=== PATIENT | female | born 1930 | race Caucasian/White ===

== ENCOUNTER 2017-11-06 15:48 | Emergency (ER) | payer MEDICARE, OTHER ==
[~2017-11-06] VITALS: Ht 170.2 cm; Wt 82.0 kg
[~2017-11-06 15:48] MED LIST: CEPH500C3 PO; LEVO100T60 PO; LORTA5 PO; TOPR25TA2 PO; ZOFR4TAB3 SL
[2017-11-06 15:53] VITALS: BP 158/78; PULSE 86; RESP 16; TEMP 98.3; O2SAT 98
[2017-11-06] MEDS ORDERED: LIDOCAINE 1%/EPINEPHrine 1:100,000 SOLN 20 ML VIAL INFIL ONE (16:00)
[2017-11-06] MEDS ORDERED: MULT400T PO (16:06)
[2017-11-06] MEDS ORDERED: LEVO100T63 PO (16:06)
[2017-11-06] MEDS ORDERED: HYDR25TA5 PO (16:06)
--- NOTE | 2017-11-06 16:07 | PD ---
HPI Chief Complaint: Laceration/Skin Injury Time Seen by Provider: 15:59 Travel History International Travel<30 days: No Contact w/Intl Traveler<30days: No Traveled to known affect area: No History of Present Illness HPI 87-year-old female that presents to the ED for evaluation of laceration to her left leg. Per patient is happened about an hour before coming. Per patient she was walking and when sign made of metal fell and landed on her leg cutting her leg. She states up-to-date with her tetanus. She states that her pain is 4 out of 10. Denies any other medical issues. No blood thinner use. No head injury or loss of consciousness. Patient does have a significant laceration to the left lower leg. No numbness, tilling, weakness. Has not seen anybody for this. No other medical issues. PFSH Past Medical History Arthritis: No Asthma: No Heart Rhythm Problems: Yes (tachycardia) Cancer: Yes (SKIN) Cardiovascular Problems: Yes ("leaky valve" ) High Cholesterol: Yes Chest Pain: No COPD: No Cerebrovascular Accident: No Diabetes: No Diminished Hearing: No Gastrointestinal Disorders: Yes GERD: Yes (DIVERTICULITIS) Genitourinary: No Headaches: No Hepatitis: No Hiatal Hernia: No Hypertension: No Kidney Stones: No Musculoskeletal: No Neurologic: Yes Reproductive: No Respiratory: No Integumentary: Yes (SKIN CA) Migraines: No Myocardial Infarction: No Renal Failure: No Seizures: No Sleep Apnea: No Thyroid Disease: Yes Ulcer: No ?: Not Menopausal: Yes Past Surgical History Abdominal Surgery: No Appendectomy: No Cardiac Surgery: No Cholecystectomy: No Ear Surgery: No Endocrine Surgery: No Eye Surgery: No Genitourinary Surgery: No Gynecologic Surgery: No Neurologic Surgery: Yes (cervical surgery- 6th and 7th) Oral Surgery: No Thoracic Surgery: Yes Other Surgery: Yes (SKIN CANCER ) Social History Alcohol Use: No Tobacco Use: No Substance Use: No Allergies-Medications (Allergen,Severity, Reaction): Coded Allergies: 12 (Verified Allergy, Severe, bleeding- skin and nausea, 11/06/17) povidone-iodine (Unverified Allergy, Mild, 11/06/17) meperidine (Unverified Adverse Reaction, Severe, vomiting, 11/06/17) propoxyphene (Unverified Adverse Reaction, Severe, vomiting, 11/06/17) Reported Meds & Prescriptions Reported Meds & Active Scripts Active Hydrocodone-Acetamin 5-325 mg (Hydrocodone/Acetaminophen) 5 Mg-325 Mg Tablet 1 Tab PO Q8HR PRN Keflex (Cephalexin) 500 Mg Cap 500 Mg PO Q8H 7 Days Reported Hydrochlorothiazide 25 Mg Tab 25 Mg PO DAILY Levoxyl (Levothyroxine Sodium) 100 Mcg Tab 100 Mcg PO DAILY Multaq (Dronedarone) 400 Mg Tab Unknown Dose PO HS Review of Systems Except as stated in HPI: all other systems reviewed are Neg Physical Exam Narrative GENERAL: SKIN: Warm and dry. HEAD: Atraumatic. Normocephalic. EYES: Pupils equal and round. No scleral icterus. No injection or drainage. ENT: No nasal bleeding or discharge. Mucous membranes pink and moist. Tongue is midline. No uvula deviation. NECK: Trachea midline. No JVD. CARDIOVASCULAR: Regular rate and rhythm. RESPIRATORY: No accessory muscle use. Clear to auscultation. Breath sounds equal bilaterally. GASTROINTESTINAL: Abdomen soft, non-tender, nondistended. Hepatic and splenic margins not palpable. MUSCULOSKELETAL: Extremities without clubbing, cyanosis, or edema. No obvious deformities. Full range of motion of the upper and lower extremities bilaterally. 2+ pulses bilaterally especially on the dorsalis pedis on posterior tibialis of the left leg. Patient has a laceration which is about 10 cm in length on the anterior tibia and fibula. Some bleeding noted. About half a centimeter deep. Fatty tissue exposed. No obvious muscle, tendon, vessel, nerve damage noted. NEUROLOGICAL: Awake and alert. No obvious cranial nerve deficits. Motor grossly within normal limits. Five out of 5 muscle strength in the arms and legs. Normal speech. PSYCHIATRIC: Appropriate mood and affect; insight and judgment normal. Data Data Last Documented VS Vital Signs Date Time Temp Pulse Resp B/P (MAP) Pulse Ox O2 Delivery O2 Flow Rate FiO2 11/06/17 15:53 98.3 86 16 158/78 (104) 98 Orders Orders Wound Care (11/06/17 15:58) Lidocai-Epi 1%-1:100,000 Inj (Xylocaine- (11/06/17 16:00) Tibia/Fibula (Ap/Lat) (11/06/17 ) Cephalexin (Keflex) (11/06/17 17:15) Ed Discharge Order (11/06/17 17:19) [facility] Medical Decision Making Medical Screen Exam Complete: Yes Emergency Medical Condition: Yes Medical Record Reviewed: Yes Interpretation(s) X-ray the left flexion no sign of bony injury Differential Diagnosis Laceration versus abrasion versus foreign body versus fracture Narrative Course 87-year-old female that presents to the ED for evaluation of left leg laceration. Patient was examined and was found to have signs and symptoms consistent with laceration. X-ray was done and show no sign of bony injury. This time recommend suture repair. Patient agrees. After the procedure to the patient she agreed to it laceration was repaired as stated in procedure note. Patient was told to get sutures removed in 14 days. Indentation itself is somewhat hard to suture secondary to patient's very thin skin. Most of the skin itself broke off and most of the fatty tissue and adipose tissue was sutured creating a good area for the inner tissue. Patient was told that unfortunately this is not take a long time to heal. She will be started on antibiotics. I did give patient information for advanced wound healing for further eval. Follow with PCP this coming week. See ED worsening symptoms. Given prescription for Keflex for infection prophylaxis. Wound care was endorsed. Procedures Procedure Narrative LACERATION LOCATION: left leg LENGTH: 10 cm NUMBER OF STITCHES/PILY: 10 sutures (horizontal mattresses), 4 deep REPAIR: The area of the laceration was prepped with Betadine and sterilely draped. The laceration was infiltrated with 1% Xylocaine. The wound was copiously irrigated and explored without evidence of foreign body, tendon injury or neurovascular injury. The wound was closed using 3-0 Prolene and 3-0 Vycril. This was a 2 layer repair. A sterile dressing was applied. The patient was advised to keep the dressing clean and dry. Patient tolerated the procedure well. Diagnosis Primary Impression: Laceration of leg Qualified Codes: S81.812A - Laceration without foreign body, left lower leg, initial encounter Referrals: [facility] Advanced Wound Healing Patient Instructions: General Instructions Additional Instructions: Wound care daily with soap and water. Apply dressing as we discussed. Neosporyn or OTC antibiotic ointment to area as needed twice a day for at least 2 weeks to help with scarring and prevent infection. You can use Vaseline as we spoke in about 4 days. Meoderma OTC for scarring if needed. Avoid sun exposure for 2 months as the sun could make scar darker and more noticeable. Get sutures removed in 14 days. Steristrips should come off in 5-10 days. Take it easy on the leg until it heals. Use your walker as needed. Motrin or tylenol for pain. Apply ice to the wound as it will likely swell up and this will help with discomfort. Elevate the leg. See ED if worst. Follow up with PCP next week. Your wound will take months to heal fully. Med/Other Pt SpecificInfo: Prescription(s) given, Wound Care Scripts Hydrocodone/Acetaminophen (Hydrocodone-Acetamin 5-325 mg) 5 Mg-325 Mg Tablet 1 TAB PO Q8HR Y for PAIN SCALE 1 TO 10, #10 Prov: Jeanie Mathur DO 11/06/17 Cephalexin (Keflex) 500 Mg Cap 500 MG PO Q8H for Infection for 7 Days, #21 CAP 0 Refills Prov: Jeanie Mathur DO 11/06/17 Disposition: 01 DISCHARGE HOME Condition: Stable Govind White Nov 06, 2017 16:07
--- NOTE | 2017-11-06 17:00 | RADRPT ---
EXAM DATE/TIME: 11/06/2017 16:10 [facility] COMPARISON: No previous studies available for comparison. INDICATIONS : Left tibia/fibula laceration post fall. MEDICAL HISTORY : None. SURGICAL HISTORY : None. ENCOUNTER: Initial ACUITY: 1 day PAIN SCORE: 5/10 LOCATION: Left tibia/fibula FINDINGS: Two view examination of the left tibia demonstrates no evidence of fracture or dislocation. Bony min eralization is normal. Soft tissue laceration without foreign body CONCLUSION: Laceration, no fracture or radiopaque foreign body Jorge Rushing MD FACR on November 06, 2017 at 16:58 Board Certified Radiologist. This report was verified electronically.
[2017-11-06] MEDS ORDERED: HYDR-3516 PO (17:14)
[2017-11-06] MEDS ORDERED: CEPH-460 PO (17:14)
[2017-11-06] MEDS ORDERED: CEPHALEXIN MONOHYDRATE 500 MG CAP PO ONE (17:15)
== END 2017-11-06 17:43 | disposition home or self-care (01) ==
LOC: PHEFT 15:48
DX: S81.812A Laceration without foreign body, left lower leg, initial encounter (principal); E07.9 Disorder of thyroid, unspecified; W20.8XXA Other cause of strike by thrown, projected or falling object, initial encounter; Y93.01 Activity, walking, marching and hiking
CPT/HCPCS: 12034; 73590